=== PATIENT | male | born 2000 | race Caucasian/White ===

== ENCOUNTER 2018-08-08 17:51 | Emergency (ER) | payer BC ==
[2018-08-08 19:42] LABS: PLATELET COUNT 181 10^3/uL (150-400)
--- NOTE | 2018-08-08 19:49 | EDPHY ---
H & P Stated Complaint: Not feeling safe in dorm, anxiety/depression,wants MH eval Time Seen by Provider: 08/08/18 17:55 HPI/ROS: HPI: This is a 17-year-old male who presents with Chief Complaint: Not feeling safe in dorm, anxiety/depression,wants MH eval Location: psych Quality: Anxiety, depression Duration: Several weeks Signs and Symptoms: no auditory hallucinations, no visual hallucinations, no suicidal ideation with a plan, no homicidal ideation, no paranoia Timing: Acute on chronic Severity: Moderate Context: Patient has a history of attention deficit hyperactivity disorder, depression, anxiety presents at the urging of his girlfriend and family as he feels unsafe to be alone in his dorm room as he has had several triggers instructions over the last several weeks that include family, friends, school that have exacerbated his depression anxiety. He is having thoughts of self- harm. He does not take any regular psychiatric medications. Patient reports that normally is able to manage his depression anxiety by himself but he does not feel capable of doing it at this time. Admits to smoking marijuana. Modifying Factors: None Comment: ROS: A comprehensive 10 system review of systems is otherwise negative aside from elements mentioned in the history of present illness. MEDICAL/SURGICAL/SOCIAL HISTORY: Medical history: Attention deficit hyperactivity disorder, depression, anxiety Surgical history: Denies Social history: Student at [employer]. Smoker. Family history noncontributory. CONSTITUTIONAL: Extremely polite and cooperative, physically fit teenage white male, awake and alert, no obvious distress HEENT: Atraumatic and normocephalic, PERRL, EOMI. Nares patent; no rhinorrhea; no nasal mucosal edema. Tympanic membranes clear. Oropharynx clear, no exudate and moist pink mucosa. Airway patent. No lymphadenopathy. No meningismus. Cardiovascular: Normal S1/S2, mild tachycardia, regular rhythm, without murmur rub or gallop. PULMONARY/CHEST: Symmetrical and nontender. Clear to auscultation bilaterally. Good air movement. No accessory muscle usage. ABDOMEN: Soft, nondistended, nontender, no rebound, no guarding, no peritoneal signs, no masses or organomegaly. No CVAT. EXTREMITIES: 2/2 pulses, strength 5/5, no deformities, no clubbing, no cyanosis or edema. NEUROLOGICAL: no focal neuro deficits. GCS 15. SKIN: Warm and dry, no erythema. no rash. Good capillary refill. PSYCH: Good eye contact, no flight of ideas, organized thought process, good insight and judgment, no auditory hallucinations, no visual hallucinations, no suicidal ideation with a plan, no homicidal ideation, no paranoia Source: Patient Exam Limitations: No limitations - Medical/Surgical History Hx Asthma: No Hx Chronic Respiratory Disease: No Hx Diabetes: No Hx Cardiac Disease: No Hx Renal Disease: No Hx Cirrhosis: No Hx Alcoholism: No Hx HIV/AIDS: No Hx Splenectomy or Spleen Trauma: No Other PMH: ADHD - Social History Smoking Status: Current some day smoker Constitutional: Initial Vital Signs Temperature (C) 36.5 C 08/08/18 17:57 Heart Rate 108 H 08/08/18 17:57 Respiratory Rate 16 08/08/18 17:57 Blood Pressure 122/81 H 08/08/18 17:57 O2 Sat (%) 97 08/08/18 17:57 O2 Delivery Mode Room Air Allergies/Adverse Reactions: No Known Allergies Allergy (Unverified 08/08/18 20:07) Home Medications: Medication Instructions Recorded Adderall 10 MG (*) 08/08/18 Medical Decision Making ED Course/Re-evaluation: Vital signs reviewed and show mild tachycardia. Patient is voluntary. Labs and urine drug screen ordered. Plan is for mental health evaluation. Patient is currently calm and cooperative. Does not require chemical intervention. Does not require M1 hold or detainer. 2000: Labs reviewed and grossly unremarkable. Urine drug screen positive for marijuana and amphetamines. medically clear for mental health evaluation. 2049: TLC at bedside 2145: Notified by Psychiatry that patient is severely depressed but does not meet inpatient criteria for psychiatric admission. Mental Health spoke with his father who feels comfortable discharging patient home. Patient has an appointment tomorrow at 2:00 p.m. With [facility] counseling. This patient was seen under the supervision of my secondary supervising physician. I evaluated care for this patient independently. Discussed this patient with Dr. Machado. Differential Diagnosis: Differential diagnosis includes but is not limited to major depression, anxiety disorder, suicidal ideation, intoxicant use. - Data Points Laboratory Results: Laboratory Results 08/08/18 19:25 08/08/18 19:25 08/08/18 08/08/18 08/08/18 19:25 19:25 19:25 WBC 7.77 10^3/uL 10^3/uL (3.80-9.50) RBC 5.79 10^6/uL 10^6/uL (4.40-6.38) Hgb 17.6 g/dL H g/dL (13.7-17.5) Hct 49.5 % % (40.0-51.0) MCV 85.5 fL fL (81.5-99.8) MCH 30.4 pg pg (27.9-34.1) MCHC 35.6 g/dL g/dL (32.4-36.7) RDW 12.4 % % (11.5-15.2) Plt Count 181 10^3/uL 10^3/uL (150-400) MPV 9.9 fL fL (8.7-11.7) Neut % (Auto) 59.0 % % (39.3-74.2) Lymph % (Auto) 31.8 % % (15.0-45.0) [place] % (Auto) 8.0 % % (4.5-13.0) Eos % (Auto) 0.8 % % (0.6-7.6) Baso % (Auto) 0.3 % % (0.3-1.7) Nucleat RBC Rel Count 0.0 % % (0.0-0.2) Absolute Neuts (auto) 4.59 10^3/uL 10^3/uL (1.70-6.50) Absolute Lymphs (auto) 2.47 10^3/uL 10^3/uL (1.00-3.00) Absolute Monos (auto) 0.62 10^3/uL 10^3/uL (0.30-0.80) Absolute Eos (auto) 0.06 10^3/uL 10^3/uL (0.03-0.40) Absolute Basos (auto) 0.02 10^3/uL 10^3/uL (0.02-0.10) Absolute Nucleated RBC 0.00 10^3/uL 10^3/uL (0-0.01) Immature Gran % 0.1 % % (0.0-1.1) Immature Gran # 0.01 10^3/uL 10^3/uL (0.00-0.10) Sodium 144 mEq/L mEq/L (135-145) Potassium 4.4 mEq/L mEq/L (3.3-5.0) Chloride 104 mEq/L mEq/L (97-110) Carbon Dioxide 28 mEq/l mEq/l (22-31) Anion Gap 12 mEq/L mEq/L (6-14) BUN 22 mg/dL mg/dL (7-23) Creatinine 1.0 mg/dL mg/dL (0.7-1.3) Estimated GFR > 60 Glucose 123 mg/dL H mg/dL (70-100) Calcium 10.8 mg/dL H mg/dL (8.5-10.4) Phosphorus 3.4 mg/dL mg/dL (2.5-4.5) Urine Opiates Screen NEGATIVE (NEGATIVE) Urine Barbiturates NEGATIVE (NEGATIVE) Ur Phencyclidine Scrn NEGATIVE (NEGATIVE) Ur Amphetamine Screen NON-NEGATIVE H (NEGATIVE) U Benzodiazepines Scrn NEGATIVE (NEGATIVE) Urine Cocaine Screen NEGATIVE (NEGATIVE) U Marijuana (THC) Screen NON-NEGATIVE H (NEGATIVE) Ethyl Alcohol < 10 mg/dL mg/dL (0-10) Departure - Departure Disposition: Home, Routine, Self-Care Clinical Impression: Major depressive disorder, severe Condition: Good Instructions: Depression (ED) Additional Instructions: Please keep follow-up appointment with [facility] counseling tomorrow at 2:00 p.m. Please refrain from using marijuana. Call 911 if you have thoughts of hurting or killing yourself or anyone else, or have any new or worsening symptoms that concern you. Referrals: [facility] [Outside] - As per Instructions
[2018-08-08 22:07] VITALS: BP 131/80
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
--- NOTE | 2018-08-08 22:40 | ASMTTCLDSP ---
TLC Discharge Disposition Disposition: Answers: Discharge Disposition Notes: Notes: PT is going to follow up tomorrow with [facility]. He has an appointment at 2pm tomorrow with Selene. PT was given 15/05 Crisis information. Discharge Concerns/Recommendations: Notes: In consultation with [facility] ED physician Basilia Anaya and on-call psychiatrist Dr. Steve Escamilla, both concurred that pt does not appear to meet 27-65 criteria requiring psychiatric hospitalization as pt does not appear to an imminent risk ti to self due to a mental illness condition. Was patient given the Answers: Not applicable Inpatient Behavioral Health Prohibited Belongings List while in the ED? Date Signed: 08/08/2018 10:40 PM Electronically Signed By:Aspen Thibodeaux
== END 2018-08-08 22:06 | disposition home or self-care (01) ==
DX: F33.2 Major depressive disorder, recurrent severe without psychotic features (principal); F41.9 Anxiety disorder, unspecified; F90.9 Attention-deficit hyperactivity disorder, unspecified type; F17.200 Nicotine dependence, unspecified, uncomplicated
CPT/HCPCS: 80305; G0480

== ENCOUNTER 2018-09-01 22:47 | Emergency (ER) | payer BC ==
[2018-09-01 22:55] VITALS: BP 120/76
[2018-09-01] MEDS ORDERED: OXYCODONE/APAP 5/325 TAB PO ONE (23:03)
--- NOTE | 2018-09-01 23:05 | EDPHY ---
H & P Stated Complaint: FALL LONGBOARDING 6 HR AGO, PAIN /IMPAIRED MOVEMENT Source: Patient Exam Limitations: No limitations - Personal History Current Tetanus/Diphtheria Vaccine: Yes - Medical/Surgical History Hx Asthma: No Hx Chronic Respiratory Disease: No Hx Diabetes: No Hx Cardiac Disease: No Hx Renal Disease: No Hx Cirrhosis: No Hx Alcoholism: No Hx HIV/AIDS: No Hx Splenectomy or Spleen Trauma: No Other PMH: ADHD - Social History Smoking Status: Current some day smoker Time Seen by Provider: 09/01/18 23:01 HPI/ROS: HPI: This is a 17-year-old male who presents with Chief Complaint: FALL LONGBOARDING 6 HR AGO, PAIN /IMPAIRED MOVEMENT Location: Right shoulder Quality: Injury Duration: 6 hr prior to arrival Signs and Symptoms: No bleeding, no radiation, no numbness, no weakness, no tingling, no incontinence, + decreased range of motion, no swelling, no pain, no fever Timing: Acute Severity: [id number] Context: Patient is right-hand dominant, presents with falling forward off of his long board approximately 6 hr prior to arrival. He reports that he landed on the posterior shoulder. Denies LOC/head injury/neck pain/dizziness/nausea/ vomiting/amnesia. He now complains of pain with overhead motions. Denies any paresthesias, weakness, skin color changes. He does have a superficial abrasion on the anterior aspect of his shoulder. Reports tetanus is current. Modifying Factors: None Comment: ROS: A comprehensive 10 system review of systems is otherwise negative aside from elements mentioned in the history of present illness. MEDICAL/SURGICAL/SOCIAL HISTORY: Medical history: Attention deficit hyperactivity disorder, anxiety. Surgical history: Denies Social history: Smoker. CONSTITUTIONAL: Polite and cooperative, teenage white male, awake and alert, no obvious distress HEENT: Atraumatic and normocephalic. NECK: supple, no midline tenderness, flexion 45 degrees, extension 45 degrees, right and left lateral flexion 45 degrees. No meningismus. Cardiovascular: Normal S1/S2, regular rate, regular rhythm, without murmur rub or gallop. PULMONARY/CHEST: Symmetrical and nontender. no crepitus. Clear to auscultation bilaterally. Good air movement. No accessory muscle usage. ABDOMEN: Soft, nondistended, nontender, no ecchymosis. PELVIC: no pain with rocking; bilateral hips flexion 125 degrees, extension 30 degrees, with no pain internal rotation and no pain external rotation. BACK: No midline tenderness, no paraspinous spasm, deep tendon reflexes 2/2, no pain with straight leg raise, No foot drop. Achilles reflexes are equal bilaterally. Able to walk on heels and toes without difficulty. EXTREMITIES: 2/2 pulses, strength 5/5, right SHOULDER: Arc test abduction to 100, abduction to 45, horizontal flexion 130, horizontal extension to 45, deltoid strength 5/5. Mild pain with Neer test/Torres test (impingement). Mild Tenderness to palpation over AC joint. No clavicle deformity noted. DIP/ PIP/MCP flexion/extension intact with good light touch sensation. no deformities , no clubbing, no cyanosis or edema. NEUROLOGICAL: no focal neuro deficits. GCS 15. Light touch sensation intact. SKIN: Warm and dry, no erythema. no rash. Good capillary refill. (Mariela Anaya) Constitutional: Initial Vital Signs Temperature (C) 37.2 C 09/01/18 22:50 Heart Rate 74 09/01/18 22:50 Respiratory Rate 18 09/01/18 22:50 Blood Pressure 120/76 09/01/18 22:50 O2 Sat (%) 97 09/01/18 22:50 O2 Delivery Mode Room Air Allergies/Adverse Reactions: No Known Allergies Allergy (Unverified 09/01/18 22:50) Home Medications: Medication Instructions Recorded Adderall 10 MG (*) 08/08/18 Xanax 09/01/18 Medical Decision Making - Diagnostics Imaging Results: Imaging Impressions Shoulder X-Ray 09/01/18 23:03 Impression: Negative for fracture. Procedures: Procedure: Splint placement. A right sling was applied the Emergency Room utility locate technician. After application of the splint I returned and re-examined the patient. The splint was adequately immobilizing the joint and distal to the splint the patient's circulation and sensation was intact. (Mariela Anaya) ED Course/Re-evaluation: Vital signs reviewed and stable upon arrival. Percocet x1 given with adequate pain relief Right shoulder x-ray my read shows no fracture, dislocation Suspect sprain of AC joint Placed in right sling with Ortho follow-up as needed No signs of neurovascular compromise/tenting of skin/compartment syndrome/ extremities and joints examined above and below area of concern and are neurovascularly intact. This patient was seen under the supervision of my secondary supervising physician. I evaluated care for this patient independently. Discussed this patient with Dr. Chaudhry. (Mariela Anaya) PHYSICIAN DOCUMENTATION: The patient was evaluated and managed by the Physician Member Of Parliament. My co- signature indicates that I have reviewed this chart and I agree with the findings and plan of care as documented. I am the secondary supervising physician. (Shannen Chaudhry) Differential Diagnosis: Differential diagnosis includes but is not limited to AC joint separation, clavicle fracture, humeral head fracture, scapular fracture, rotator cuff injury , labral tear. (Mariela Anaya) - Data Points Medications Given: Discontinued Medications Oxycodone/Acetaminophen (Percocet 5/325) 1 tab PO EDNOW ONE Stop: 09/01/18 23:04 Last Admin: 09/01/18 23:11 Dose: 1 tab Departure - Departure Disposition: Home, Routine, Self-Care Clinical Impression: Sprain of right shoulder Condition: Good Instructions: How to Use a Sling (ED), Shoulder Sprain (ED) Additional Instructions: Wear the sling while out of bed until pain free. Activity: Do not use injured extremity until pain free or seen by Orthopedics Take Tylenol 650 mg every 4 hours and/or Ibuprofen 600 mg every 8 hours with food as needed for pain. Apply ice for 30 minutes at a time; 2-3 times per day for the next 1-2 days. Follow up with Orthopedics in 7-10 days if symptoms persist at which time they will evaluate and recommend with you if conservative management versus further imaging like MRI is indicated. The x-rays obtained in the emergency department today demonstrate no evidence of an obvious fracture. Sometimes fractures are not obvious on the initial set of x-rays performed in the ED. For this reason, you should have repeat x-rays performed in 7-10 days if you are having any pain exclude the possibility of an occult fracture. Referrals: Willie Sorto MD [Medical Doctor] - As per Instructions
== END 2018-09-01 23:29 | disposition home or self-care (01) ==
DX: S43.401A Unspecified sprain of right shoulder joint, initial encounter (principal); W19.XXXA Unspecified fall, initial encounter; F17.200 Nicotine dependence, unspecified, uncomplicated
CPT/HCPCS: A4565